=== PATIENT | female | born 1955 | race Caucasian/White ===

== ENCOUNTER 2016-10-02 22:15 | Observation (INO) | payer MEDICARE ==
[~2016-10-02] VITALS: Ht 167.6 cm; Wt 66.3 kg
[2016-10-02 23:15] VITALS: BP 102/68; PULSE 80; RESP 16; O2SAT 95
--- NOTE | 2016-10-02 23:15 | NUR ---
Admission Pt arrived on gurney with EMT's who transported the pt from [facility]. Pt was able to independently ambulate with steady gait to stand on scale for weight and then to the bed. Pt's VSS, pt is AOx3, on RA with SpO2 94-95%, afebrile, and multiple EKG stickers on skin. Had to remove the EKG stickers carefully since pt has very fragile skin. Pt takes prednisolone daily. Pt has a colostomy and emptied it herself without measuring. Pt also took hat out of toilet and urinated without measuring it. Pt has had no c/o chest pain, dizziness, or light headedness and is steady on her feet. Pt still has nitro paste on the back of the left shoulder.
[2016-10-02 23:32] VITALS: PULSE 85
[2016-10-02] MEDS ORDERED: Alum-Mag Hydrox-Simeth 30 mL Suspension PO PRN (23:55)
[2016-10-02] MEDS ORDERED: Ondansetron 2 mg/mL 2 mL Inj IVPUSH PRN (23:55)
[2016-10-02] MEDS ORDERED: Polyethylene Glycol (PEG) 17 Gm Powder PO PRN (23:55)
[2016-10-02] MEDS ORDERED: Senna-Docusate 8.6-50 mg Tablet PO PRN (23:55)
[2016-10-03] VITALS (7 sets, daily range): BP systolic 92–128; BP diastolic 61–83; PULSE 72–106; RESP 16–20; O2SAT 93–96
[2016-10-03] MEDS: Sodium Chloride LOK Flush 10 mL Syringe IVFLUSH SCH ×3 (00:30→16:30)
[2016-10-03] MEDS ORDERED: LORA10CA PO (00:35)
[2016-10-03] MEDS ORDERED: FLUT16SP NS (00:35)
[2016-10-03] MEDS ORDERED: LEVO88TA63 PO (00:35)
[2016-10-03] MEDS ORDERED: METH2.5T PO (00:35)
[2016-10-03] MEDS ORDERED: LOSA25TA21 PO (00:35)
[2016-10-03] MEDS ORDERED: ALBU0.63 INHALATION (00:35)
[2016-10-03] MEDS ORDERED: FAMC250T4 PO (00:35)
[2016-10-03] MEDS ORDERED: FRSM80T PO (00:35)
[2016-10-03] MEDS ORDERED: CARV12.52 PO (00:35)
[2016-10-03 01:18] LABS: BASOPHILS % (AUTO) 0.2 % (0-3); EOSINOPHILS % (AUTO) 0 % (0-5); MONOCYTES % (AUTO) 9.6 % (4-12); Mean Corpuscular Hemoglobin 29.8 pg (27.0-35.0); Mean Corpuscular Volume 90.3 fL (81-100); NEUTROPHILS % (AUTO) 77.2 % (40-74); Platelet Count 532 bil/L (150-400)
[2016-10-03 02:07] LABS: TROPONIN T 0.01 ug/L (0.0-0.011)
--- NOTE | 2016-10-03 02:16 | PCM.HPMED ---
Subjective Date of Service Oct 03, 2016 Primary Provider: Admitting Physician: Emerald Escoto DO Primary Care Physician: Juan Luis Delatorre MD Attending Physician: Emerald Escoto DO Admit Status: Direct Admit (from [facility]) Chief Complaint: Patient was experiencing chest discomfort, and felt a an electric jolt suddenly and possibly from her IAD History of Present Illness: Mitchell is a pleasant 60-year-old female with complex past medical history to include CHF status post placement of AICD/pacer in 01/20/2015 or 2016, hypertension, Graves' disease status post thyroid radiation, now with chronic hypothyroidism, COPD, who presented to this hospital via transfer from [facility] after having been brought in by EMS and after having experienced worsening chest tightness with exertion while shopping, associated shortness of breath, and dyspnea onset this morning about 10 AM. Patient states this morning that she had gained 2 pounds over the past 24 hours and took an additional one half of her normal water pill morning. Patient states that the chest tightness/pain continued to worsen throughout the business solutions architect and at about 1:00 pm patient states that she experienced an electric jolt sensation that she attributed to her AICD. Patient states that she has experienced her defibrillator going off in the past and this episode seemed consistent with her prior. She states that just before the defibrillator went off she felt like she was about to pass out and became weak and unsteady. She describes a sensation as though her heart was slowing, and her chest tightness was more severe. Patient endorses considerable amount of life stressors at the present time. She denies having actually passed out, or fallen, denies fever, chills, nausea, vomiting, diaphoresis, pain that radiates to the neck arm or back, rigors, abdominal pain, diarrhea, constipation. Patient's business planner is Charlie Rice who she reportedly last seen 3 months ago. Of note patient is currently being treated for bronchitis with Augmentin. [facility] vital signs temperature 36.4, pulse 85, respiratory rate 16, blood pressure 102/68, pulse ox 95% on room air. At [facility] patient's labs are as follows. UA: Trace bacteria 1+ otherwise normal UA Weight blood cell count 18.1, hemoglobin 12.8, hematocrit 38.9, platelet count 520, neutrophils 77%, INR, 0.9, D-dimer 0.54 high (range of 0.27-0.52), RISK TECH 82.6, amylase 128 high, TSH 0.262 L, Chemistry panel: Glucose 95, BUN 22, creatinine 1.2, sodium 140, potassium 3.2 L , chloride 100, CO2 27, calcium 9.4, troponin I negative at 0.05 (normal range is 0.00-1.5) Patient was given nitroglycerin 1.5 inch paste, normal saline 500 mL bolus, aspirin 325 mg by mouth, Ativan 0.5 mg IV, and started on Lovenox 60 mg subcutaneous. Review of Systems: A comprehensive review of systems was conducted and found to be negative except as mentioned in the history of present illness. Allergies Coded Allergies: Sulfa (Sulfonamide Antibiotics) (Verified Allergy, Unknown, 10/03/16) acyclovir (Verified Allergy, Unknown, 10/03/16) carbamazepine (Verified Allergy, Unknown, 10/03/16) cefaclor (Verified Allergy, Unknown, 10/03/16) glucosamine (Verified Allergy, Unknown, 10/03/16) metronidazole (Verified Allergy, Unknown, 10/03/16) morphine (Verified Allergy, Unknown, 10/03/16) naproxen (Verified Allergy, Unknown, 10/03/16) nitrofurantoin (Verified Allergy, Unknown, 10/03/16) Home Medications Albuterol sulfate inhalation 0.63 mg per 3 mL vial every 4 hours when necessary Carvedilol 12.5 mg twice a day Famciclovir 250 mg 3 times a day Fluconazole 5 mg daily 9 days Fluticasone propionate 16 g nasal 2 sprays each nostril twice a day Furosemide 80 mg per day Thyroxine sodium oral 88 g daily Losartan potassium oral 25 mg daily Methotrexate 2.5 mg daily Potassium chloride CR 10 mEq, 4 tablets twice a day Prednisolone 50 mg twice a day Proventil HFA inhalation 1-2 puffs 4 times a day as needed Spironolactone 25 mg daily Vitamin D oral 2000 unit capsule, 1 capsule daily Zofran 4 mg when necessary Patient currently on Augmentin, second round of seven-day course for bronchitis , patient states she has 2 days left of antibiotic. PMH CHF Hypertension Migraine headache Hypothyroidism Stress reaction C. difficile colitis NESSA History rectal bleed Ulcer colitis Osteopenia Breast cancer COPD Fibromyalgia History of falls fracture lumbar L2 on 04/08/2016 History Graves' disease status post thyroid radiation Surgical History Breast cancer lumpectomy left side Endometriosis Hemorrhage with childbirth sinus surgery Tonsillectomy Tubal ligation AICD/pacer 01/20/2015 or 2015 Colectomy/colostomy November 2015 with temporary ileostomy Family History With diabetes mellitus type II, Grandfather on mom's side with CHF, Aunt on mother's side with bone cancer, Sister with polymyositis, Grandfather on mom's side with history of [place] and cardiac arrest Aunt on mom's side with Graves' disease Grandmother on dad's side with rheumatoid arthritis Dad with emphysema Uncle with diabetes mellitus type I Social History Hx Alcohol Use: Yes Alcoholic Drinks Per Day: 1 glass wine/day Hx Substance Use: No Hx Tobacco Use: No Smoking Status: Never Smoker Living Arrangement: with Family ( boyfriend Jerson Islas) Exam Vital Signs Vital Sign - Last Date Time Temp Pulse Resp B/P Pulse Ox O2 Delivery O2 Flow Rate FiO2 10/02/16 23:32 85 10/02/16 23:15 36.4 16 102/68 95 Room Air Exam General: Alert and oriented 3, no acute distress, describing no current chest pain or tightness, somewhat labile mood when discussing her life stressors including the recent of her mother. HEENT: No cephalic, atraumatic, extraocular muscles intact, exophthalmus right greater than left status post history of Graves' disease, neck supple, mildly tender in the posterior cervical spine with palpation, no masses, no adenopathy , no JVD, throat noninjected, no erythema Lungs: Clear to auscultation all kidd no wheezes no rhonchi no crackles Heart: Regular rate and rhythm without murmur, without rub, without click Abdomen: Ileostomy right lower quadrant, bowel sounds active, abdomen soft, nontender, nondistended, no organomegaly detected Genitourinary: No suprapubic tenderness Extremities: No lower extremity edema, pulses equal bilaterally upper/lower extremity Neurologic: Appears grossly neurologically intact speaking in full sentences, without focal neurological signs Skin: Skin appears extremely dry to touch and fragile. Psychiatric: Mood is labile at times during the interview, specifically when discussing her life stressors. Assessment & Plan Mitchell is a pleasant 60-year-old female with complex past medical history to include CHF status post placement of AICD/pacer in 01/20/2015 or 2016, hypertension, Graves' disease status post thyroid radiation, now with chronic hypothyroidism, COPD, who presented following an episode of worsening chest tightness with exertion while shopping, associated shortness of breath, and dyspnea and then experienced an electric jolt sensation that she attributed to her AICD. He was admitted for further workup and interrogation of her AICD/ pacemaker. # Acute onset chest pain, present on admission, active - Patient currently not in any chest pain. Patient was given Vicodin 10 mg tablet at [facility]. At 8:10 PM on 10/02/2016 - She was transferred from [facility] poorly after having experienced possible discharge of her AICD. Patient received topical nitroglycerin paste 1.5 inches applied to the right upper back. - Workup at [place] was negative as follows: Troponin I negative at 0.05 ( normal range is 0.00-1.5), - Was given Lovenox 60 mg subcutaneous once. - D-dimer slightly elevated at 0.54 normal range (range of 0.27-0.52) - EKG from [facility] showed paced rhythm nonspecific ST segment and T-wave abnormalities. - CXR [facility] reportedly showed no acute changes - Patients lase echo is unknown. Will order echo complete. - As yet not seen by business planner. - Cardiology consult in the morning. Patient will need pacer interrogation. - We will repeat troponin I X 2 - O2 Sats keep > 94% - IV fluids if needed for BP control. Note patient has CHF and currently on Furosemide 80 mg PO daily - Continue home medication carvedilol 12.5 mg twice a day - Continue home Losartan - Start Atorvastatin 40 mg - allergy to Morphine. hydromorphone for pain control - Nitro SL, Nitro [place], Nitro Paste (PRN) - Aspirin 325mg - Lovenox subcutaneous dose 60 mg, patient given single dose at [place]), will not continue at this time given neg trop - Continuous Cardiac Monitoring/BP monitoring - Labs (Lipid Panel, CBC, CMP, PT/PTT/INR) # Leukocytosis, chronicity unknown, present on admission - WBCs 18.1, neutrophils 77% - Patient currently on her second round of 7 days course of Augmentin, for stated bronchitis. - Pro calcitonin - Continue outpatient Augmentin 2 more days # Hypokalemia, present on admission, active - Current potassium is 3.[address] [facility] labs. repeat wnl - After review of nursing progress Notes it does not appear patient had potassium repleted at [facility] - We will plan to reorder chemistry labs and replete potassium as needed Chronic problems CHF Hypertension Migraine headache Hypothyroidism, history Graves' disease status post thyroid radiation Ulcer colitis Osteopenia COPD Fibromyalgia History of falls fracture lumbar L2 on 04/08/2016 Disposition: Admitted to in patient service with expected length of stay greater than 2 days, secondary to severity of presenting symptoms, treatment plan, complexity of clinical work up, and risk of adverse events. CODE STATUS: DNR/DNI Government Relations Manager: Charlie Rice at [facility] PCP: Juan Luis Delatorre DVT/PE prophylaxis: Patient received 60 mg of subcutaneous Lovenox at [facility] part prior to transfer at 19:53 on 10/02/2016 per RN nursing notes. SCDs as of now. VTE Mechanical Devices: Intermittant Pneumatic CD Resuscitation Status: DNR/DNI:Do Not Resuscitate/Intubate Attending Statement The patient was seen and examined together with house staff on 10/02/2016 and I have added additional information to the note above. Gualberto Pride DO Oct 03, 2016 02:16 Emerald Escoto DO Oct 03, 2016 04:28 , chloride 100, CO2 27, calcium 9.4, troponin I negative at 0.05 (normal range is 0.00-1.5) Patient was given nitroglycerin 1.5 inch paste, normal saline 500 mL bolus, aspirin 325 mg by mouth, Ativan 0.5 mg IV, and started on Lovenox 60 mg subcutaneous. VTE Mechanical Devices: Intermittant Pneumatic CD Resuscitation Status: DNR/DNI:Do Not Resuscitate/Intubate Gualberto Pride DO Oct 03, 2016 02:16 Emerald Escoto DO Oct 03, 2016 04:28 Gualberto Pride DO Oct 03, 2016 02:16 Emerald Escoto DO Oct 03, 2016 04:28
[2016-10-03] MEDS ORDERED: Ondansetron 2 mg/mL 2 mL Inj IVPUSH PRN (02:20)
[2016-10-03] MEDS ORDERED: Alum-Mag Hydrox-Simeth 30 mL Suspension PO PRN (02:20)
[2016-10-03] MEDS ORDERED: Senna-Docusate 8.6-50 mg Tablet PO PRN (02:20)
[2016-10-03] MEDS ORDERED: Polyethylene Glycol (PEG) 17 Gm Powder PO PRN (02:20)
[2016-10-03] MEDS ORDERED: ONDA4TAB6 PO (04:50)
[2016-10-03] MEDS ORDERED: MESA1.2T2 PO (04:50)
[2016-10-03] MEDS ORDERED: CHOL100043 PO (04:50)
[2016-10-03] MEDS ORDERED: SPIR25TA3 PO (04:50)
[2016-10-03] MEDS ORDERED: NITR0.4T6 SL (04:50)
[2016-10-03] MEDS ORDERED: PRED5TAB55 PO (04:50)
[2016-10-03] MEDS ORDERED: POTA10CA42 PO (04:50)
[2016-10-03] MEDS ORDERED: predniSONE 5 mg Tablet PO SCH (08:00)
[2016-10-03] MEDS ORDERED: Albuterol 1.25 mg/3 mL Inhalation Solution INHALATION PRN (08:00)
[2016-10-03] MEDS ORDERED: Fluticasone 0.05% 15 Spray/2 Gm 16 Gm Nasal Spray NASAL SCH (08:30)
[2016-10-03] MEDS ORDERED: Sodium Chloride LOK Flush 10 mL Syringe IVFLUSH SCH (08:30)
[2016-10-03 08:48] LABS: TROPONIN T < 0.010 ug/L (0.0-0.011)
[2016-10-03] MEDS: Acyclovir 800 mg Tablet PO SCH ×2 (09:21→13:58)
[2016-10-03] MEDS: HYDROcodone-APAP 10-325 mg PO PRN ×3 (09:22→21:42)
--- NOTE | 2016-10-03 10:35 | DRSVH ---
PROCEDURE: X-RAY CHEST ONE VIEW, PORTABLE ([id number]) INDICATIONS: Chest pain TECHNIQUE: One view of the chest was acquired. COMPARISON: None. FINDINGS: Surgical changes and devices: Right chest AICD present. Lungs and pleura: No pleural effusions or pneumothorax. Lungs are clear. Mediastinum: Mediastinal contours appear normal. Heart size is normal. Bones and chest wall: No suspicious bony lesions. Overlying soft tissues appear unremarkable. IMPRESSION: No acute cardiopulmonary disease. Dictated by: Manuel AMES Interpreted: Junaid Sage MD on 10/03/2016 at 10:34 Transcribed by: HARDIK on 10/03/2016 at 10:34 Approved by: Da Sage M.D. on 10/03/2016 at 16:22
[2016-10-03] MEDS ORDERED: Fluticasone 0.05% 15 Spray/2 Gm 16 Gm Nasal Spray NASAL PRN (11:58)
[2016-10-03] MEDS ORDERED: Potassium Chloride 20 mEq/15 mL 15mL Oral Soln PO SCH (12:05)
[2016-10-03] MEDS ORDERED: predniSONE 1 mg Tablet PO ONE (13:00)
[2016-10-03] MEDS: Mesalamine 500 mg CR Capsule PO SCH ×2 (13:57→20:30)
--- NOTE | 2016-10-03 15:45 | NUR ---
Med Rec After working with the MD and Pharmacist we adjusted and corrected the pt's med rec. The pt stated she had an old list but is very knowledgeable of when and dose of her medications. We adjusted and corrected them on the [place] and I adjusted the Med Rec so its ready to go upon discharge.
--- NOTE | 2016-10-03 16:36 | NUR ---
Social Work Note: Initial Assessment/Discharge Data& Assessment: Per pt is medically ready for discharge. MARGUERITE met with pt at bedside to discuss discharge planning and assess for any unmet needs, SW role explained. Mitchell Mares is a 60 year old female admitted on 10/02/2016 for unstable angina. Per pt is medically improved and ready for discharge. Pt has [employer] Medicare insurance coverage and her PCP is Juan Luis Delatorre MD. Pt lives in [place] with her significant other and is independent at baseline with all ADL;s. Pt has DME at home if needed but does not use/require them for ambulation assistance. Pt has had HH services in the past but does not remember the name. Pt has been to [facility] and rehab in the past as well for SNF stay. Pt does not have LTC insurance and is not a . Pt declined DPOA paperwork at this time and explained she was feeling two overwhelmed with the of her mother to think about DPOA. Pt explained she needed a ride home to [place]. SW explained transportation is not covered under her insurance and would need to private pay for a taxi. Pt explained she was not willing to spend the money on a taxi to get home so she would either wait here or she would "figure something else out." Pt became very agitated and denied any other needs from MARGUERITE. MARGUERITE notified RN. No other discharge needs identified. Plan: Per pt is medically improved and ready to discharge home via POV. Pt denied any other needs from MARGUERITE. MARGUERITE notified RN. No other discharge needs identified. CHRISTIANE Perez Addendum: 10/03/16 at 1642 by CAITLIN ECHAVARRIA Amended: Links added.
--- NOTE | 2016-10-03 17:30 | NUR ---
spiritual care: pt request pt tearful as she reflected on recent of her mother and overwhelm of grief and tasks. Pt articulate about her situation including sense of vulnerability and alliances as she faces future. Pt identified sources of strength as she recollected emotions, events and experiences around providing longtime care for her mother. blessing
--- NOTE | 2016-10-03 18:02 | NUR ---
Case Management: Explained JONES to patient at 1735, all questions answered. Signed original in chart, patient given a copy. Cornelia Fernandez RN
--- NOTE | 2016-10-03 18:09 | CONS ---
[address] [address] CONSULTATION REPORT PATIENT: ENRIKE TORRES : 1955 MR#: [id number] ADMIT: 10/02/2016 JOB ID: [id number] DATE OF SERVICE: 10/03/2016 HISTORY: I was asked by the hospitalist to see this patient for evaluation of possible ICD shock. This patient's cardiac history dates back several years ago when she was found to have evidence of a significant left ventricular systolic dysfunction. Her evaluation at that time at [facility] in [place] did not demonstrate any evidence of underlying ischemic or valvular heart disease, and the patient states that she felt it was related to Humira that she had been taking for her history of ulcerative colitis and rheumatoid arthritis in the past. Ultimately, she ended up on a number of appropriate cardiac medications and a biventricular ICD device was placed a couple of years ago. This was a [employer] device. This patient states that she has had several episodes over the past couple of years of a sense of lightheadedness. She describes a sense that her heart is slowing and that she becomes lightheaded and then feels an electric sensation substernally and is then immediately back to normal. On each occasion that this has happened, she has had her device interrogated and no significant dysrhythmias or shocks have been identified. Similar episode occurred on the morning of admission yesterday. She had recovered from a bronchitis episode where she was pretty much in bed for the last five days. She was up and about doing some errands and chores holding onto a grocery cart when she had a similar episode and when she got home she contacted the [facility] nurse on the phone who encouraged her to contact 911 which she did, and she was brought therefore to this hospital for further evaluation after she presented to [facility]. Her evaluation to date has been unremarkable. Her device shows atrial synchronous biventricular pacing. She has no history of angina-like chest discomfort though she does have a history of fibromyalgia and experiences a variety of unusual precordial chest pains on occasion. She also states that every time her device is checked as they are adjusting the device to test its function, she will have symptoms of significant discomfort. CURRENT CARDIAC MEDICATIONS AT HOME: Include: 1. Carvedilol 12.5 mg b.i.d. 2. Furosemide. She takes two pills in the morning and one pill in the evening. She also has metolazone that she takes a half a tablet once or twice a week as needed for symptomatic fluid congestion. 3. She takes losartan 25 mg a day. 4. Spironolactone 25 mg a day. 5. Oral liquid potassium since she does not absorb the pill potassium because of her previous bowel problems. 6. Additionally she is on thyroid medication. 7. For her rheumatoid arthritis and history of ulcerative colitis she is on methotrexate in addition to prednisone in variable doses. PAST MEDICAL HISTORY: Otherwise includes rheumatoid arthritis and ulcerative colitis. She has had previous lumpectomy and radiation therapy for breast cancer in the left breast about four/five years ago and a history of fibromyalgia. SOCIAL HISTORY: Otherwise noncontributory. Her ambulation is somewhat limited by some back discomfort, but she is able to be reasonably active. PHYSICAL EXAMINATION: She is a very pleasant, 60-year-old female who does not appear in any distress. She is 5 feet 6 inches tall and weighs 146 pounds with a body mass index of 23.5. Cardiovascular examination is unremarkable. She has a right-sided ICD in place. She has no significant evidence of pulmonary congestion or lower extremity edema and jugular venous pressure looks normal as well. LABORATORY DATA: Notable for moderately elevated white count of 17,000 likely related to her steroids. Her platelet count was also high at 532,000. Chemistries show slightly low potassium at 3.5 and a fairly high cholesterol of 236 with an LDL cholesterol of 163. TSH level is moderately low at 0.255. Serial troponin levels are negative. Chest x-ray demonstrates a biventricular ICD in place. Earlier this afternoon, the [employer] telemarketing representative was able to interrogate the device. Interestingly, this precipitated the usual discomfort that she gets when she goes into her sports media's office for device testing. The device demonstrates no evidence of dysrhythmias. She is biventricular pacing greater than 99% of the time and has been in a normal sinus rhythm consistently. IMPRESSION: I suspect that this patient's lightheaded episodes may represent a vasodepressor event but, clearly, is not a cardiac-related symptom. I think she can continue with her current cardiac medications and follow up with Dr. Ott, her primary sports media in [place]. I think it is reasonable for her to be discharged home and reassured. I have suggested that if she has recurrent similar episodes that she promptly sit down to avoid the possibility of syncope.
[2016-10-03 18:22] LABS: Mean Corpuscular Hemoglobin 29.9 pg (27.0-35.0); Mean Corpuscular Volume 90.3 fL (81-100); NEUTROPHILS % (AUTO) 79.8 % (40-74)
[2016-10-03 18:26] LABS: BASOPHILS % (AUTO) 0.2 % (0-3); EOSINOPHILS % (AUTO) 0.2 % (0-5); MONOCYTES % (AUTO) 9.9 % (4-12); Platelet Count 534 bil/L (150-400)
--- NOTE | 2016-10-03 20:02 | PCM.DIMED ---
Discharge Instructions Date of Service Oct 03, 2016 Dates of Hospitalization Oct 02, 2016 at 23:12 Discharge Diagnosis Discharge Diagnosis Vasovagal reaction with atypical chest discomfort Diet Heart Healthy Activity No restrictions (a resume usual activities gradually as tolerated) Call your provider Fever or Chills, Shortness of breath, Bleeding, Chest pain, Vomitting, Excessive diarrhea, Weakness (unilateral), Other Patient Instructions Follow-up Provider: Alonzo Castle MD Follow-up with PCP in: 1 week Follow-up in: 2 weeks (follow-up with director of speech pathology Dr. Charlie Rice) Juan Pablo Reynoso MD Oct 03, 2016 20:02
[2016-10-03] MEDS ORDERED: NITR0.4T SL (20:07)
[2016-10-03] MEDS ORDERED: AMOX500T2 PO (20:07)
[2016-10-03] MEDS ORDERED: ATOR40TA69 PO (20:07)
[2016-10-03] MEDS ORDERED: FOLI1TAB18 PO (20:07)
[2016-10-03] MEDS ORDERED: ASPI81TA3 PO (20:07)
--- NOTE | 2016-10-03 21:26 | PCM.DC.MED ---
Discharge Summary Date of Service Oct 03, 2016 Dates of Hospitalization Date of Hospital Admission Oct 02, 2016 at 23:12 Date of Discharge: Oct 03, 2016 Providers: Admitting Physician: Emerald Escoto DO Primary Care Physician: Juan Luis Delatorre MD Attending Physician: Emerald Escoto DO Diagnosis at Time of Discharge Diagnosis at Time of Discharge Vasovagal reaction with atypical chest discomfort Consultations Dr. Joe Rodriguez of cardiology Procedures XRay, CTs & MRIs PROCEDURE: X-RAY CHEST ONE VIEW, PORTABLE ([id number]) INDICATIONS: Chest pain TECHNIQUE: One view of the chest was acquired. COMPARISON: None. FINDINGS: Surgical changes and devices: Right chest AICD present. Lungs and pleura: No pleural effusions or pneumothorax. Lungs are clear. Mediastinum: Mediastinal contours appear normal. Heart size is normal. Bones and chest wall: No suspicious bony lesions. Overlying soft tissues appear unremarkable. IMPRESSION: No acute cardiopulmonary disease. Dictated by: Manuel Celaya RRNba Interpreted: Junaid Sage MD on 10/03/2016 at 10: 34 Transcribed by: HARDIK on 10/03/2016 at 10:34 Approved by: Da Sage M.D. on 10/03/2016 at 16:22 Brief History Mitchell is a pleasant 60-year-old female with complex past medical history to include CHF status post placement of AICD/pacer in 01/20/2015 or 2016, hypertension, Graves' disease status post thyroid radiation, now with chronic hypothyroidism, COPD, who presented to this hospital via transfer from [facility] after having been brought in by EMS and after having experienced worsening chest tightness with exertion while shopping, associated shortness of breath, and dyspnea onset this morning about 10 AM. Patient states this morning that she had gained 2 pounds over the past 24 hours and took an additional one half of her normal water pill morning. Patient states that the chest tightness/pain continued to worsen throughout the service trainer and at about 1:00 pm patient states that she experienced an electric jolt sensation that she attributed to her AICD. Patient states that she has experienced her defibrillator going off in the past and this episode seemed consistent with her prior. She states that just before the defibrillator went off she felt like she was about to pass out and became weak and unsteady. She describes a sensation as though her heart was slowing, and her chest tightness was more severe. Patient endorses considerable amount of life stressors at the present time. She denies having actually passed out, or fallen, denies fever, chills, nausea, vomiting, diaphoresis, pain that radiates to the neck arm or back, rigors, abdominal pain, diarrhea, constipation. 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 Of note patient is currently being treated for bronchitis with Augmentin. [facility] vital signs temperature 36.4, pulse 85, respiratory rate 16, blood pressure 102/68, pulse ox 95% on room air. At [facility] patient's labs are as follows. UA: Trace bacteria 1+ otherwise normal UA Weight blood cell count 18.1, hemoglobin 12.8, hematocrit 38.9, platelet count 520, neutrophils 77%, INR, 0.9, D-dimer 0.54 high (range of 0.27-0.52), DECONTAMINATION TECHNICIAN 82.6, amylase 128 high, TSH 0.262 L, Chemistry panel: Glucose 95, BUN 22, creatinine 1.2, sodium 140, potassium 3.2 L , chloride 100, CO2 27, calcium 9.4, troponin I negative at 0.05 (normal range is 0.00-1.5) Patient was given nitroglycerin 1.5 inch paste, normal saline 500 mL bolus, aspirin 325 mg by mouth, Ativan 0.5 mg IV, and started on Lovenox 60 mg subcutaneous. Patient was transferred to [facility] for further cardiac workup. Hospital Course Mitchell is a pleasant 60-year-old female with complex past medical history to include CHF status post placement of AICD/pacer in 01/20/2015 or 2016, hypertension, Graves' disease status post thyroid radiation, now with chronic hypothyroidism, COPD, who presented following an episode of worsening chest tightness with exertion while shopping, associated shortness of breath, and dyspnea and then experienced an electric jolt sensation that she attributed to her AICD. He was admitted for further workup and interrogation of her AICD/ pacemaker. # Acute onset chest pain, present on admission, active - Patient currently not in any chest pain. Patient was given Vicodin 10 mg tablet at [facility]. At 8:10 PM on 10/02/2016 - She was transferred from [facility] poorly after having experienced possible discharge of her AICD. Patient received topical nitroglycerin paste 1.5 inches applied to the right upper back. - Workup at [place] was negative as follows: Troponin I negative at 0.05 ( normal range is 0.00-1.5), - Was given Lovenox 60 mg subcutaneous once. - D-dimer slightly elevated at 0.54 normal range (range of 0.27-0.52) - EKG from [facility] showed paced rhythm nonspecific ST segment and T-wave abnormalities. - CXR [facility] reportedly showed no acute changes - Patients lase echo is unknown. We ordered an echocardiogram, however this had not been completed at the time of discharge. - Cardiology consult was obtained with Dr. Joe Rodriguez seeing the patient. Appreciate his time and expertise. A Pacer interrogation was performed by the [employer] branch customer service representative who found nothing wrong with her AICD/pacemaker. Furthermore, the [employer] branch customer service representative found no unusual events within the last few days. - Patient has had a negative troponin I X 3 - O2 Sats keep > 94% - IV fluids if needed for BP control. Note patient has CHF and currently on Furosemide 80 mg PO daily - Continue home medication carvedilol 12.5 mg twice a day - Continue home Losartan - Start Atorvastatin 40 mg - allergy to Morphine. hydromorphone for pain control - Nitro SL, Nitro [place], Nitro Paste (PRN) - Aspirin 325mg - Lovenox subcutaneous dose 60 mg, patient given single dose at [place]), will not continue at this time given neg trop - Continuous Cardiac Monitoring/BP monitoring - Labs (Lipid Panel, CBC, CMP, PT/PTT/INR) # Leukocytosis, chronicity unknown, present on admission - WBCs 18.1, neutrophils 77%. Repeat white blood cell count 17.0 and then repeat later today is 13.8. Suspect patient experienced some demyelination of white blood cells and white blood cell count is normalizing her home amoxicillin therapy - Patient currently on her second round of 7 days course of Amoxicillin, for stated bronchitis. - Pro calcitonin - Continue outpatient Amoxicillin 2 more days # Hypokalemia, present on admission, active - Current potassium is 3.2 per [facility] labs. repeat wnl - After review of nursing progress Notes it does not appear patient had potassium repleted at [facility] - We will plan to reorder chemistry labs and replete potassium as needed Chronic problems CHF Hypertension Migraine headache Hypothyroidism, history Graves' disease status post thyroid radiation Ulcer colitis Osteopenia COPD Fibromyalgia History of falls fracture lumbar L2 on 04/08/2016 Disposition: Patient was evaluated by Dr. Joe Rodriguez of cardiology. He feels that the may be discharged home to continue her usual course of home medications. Patient to follow-up with her boring mill set up operator Dr. Charlie Rice at [facility]. The patient agrees with this plan and will be discharged home. CODE STATUS: DNR/DNI Blindstitch Lapel Padder: Charlie Rice at [facility] PCP: Juan Luis Delatorre DVT/PE prophylaxis: Patient received 60 mg of subcutaneous Lovenox at [facility] part prior to transfer at 19:53 on 10/02/2016 per RN nursing notes. SCDs as of now. Exam Vital Signs (Last) Date Time Temp Pulse Resp B/P Pulse Ox O2 Delivery O2 Flow Rate FiO2 10/03/16 20:17 36.9 105 18 110/70 93 Room Air Exam General: Patient is in no apparent distress. HEENT: Head is atraumatic and normocephalic. Eyes: Pupils are equally round and reactive to light and accommodation. Extraocular muscles are intact. Sclera are white, anicteric. Subconjunctival mucosa is pink. Ears and nose are unremarkable. Oropharynx: There is no mucosal lesions, there is no thrush, there is no pharyngitis. Neck: Is supple, there are no nodes, or masses or tenderness. Chest: Is clear to auscultation and percussion. There are no rales, rhonchi, wheezes or rubs. Heart: Rate, rhythm is regular. There is no murmur, rub or gallop. Abdomen: Good bowel sounds are present. Abdomen is soft, nontender, no organomegaly or masses were appreciated. Extremities: Are symmetrical and well perfused. There is no edema, there is no cellulitis, no rash. Neurologic: There are no focal neurological deficits. Cranial nerves II through XII are intact. There are no sensory or motor deficits. Psychiatric: Patients mood is calm and shows no sign of agitation. Genital: Deferred Rectal: Deferred Test 10/03/16 01:08 10/03/16 07:25 10/03/16 17:55 Sodium Level 137mEq/L (134-144) Potassium Level 3.5mEq/L (3.5-5.2) Chloride Level 94mEq/L (97-108) Carbon Dioxide Level 24mmol/L (18-29) Blood Urea Nitrogen 20mg/dL (8-27) Creatinine 0.99mg/dL (0.57-1.00) Estimat Glomerular Filtration Rate 81mL/min (>59) Glucose Level 102mg/dL (60-99) Calcium Level 9.1mg/dL (8.5-10.1) Triglycerides Level 136mg/dL (0-149) Cholesterol Level 236mg/dL (100-199) LDL Cholesterol, Calculated 163.800mg/dL (0-99) VLDL Cholesterol 27.200mg/dL HDL Cholesterol 45mg/dL (>39) Cholesterol/HDL Ratio 5.24 (0.0-4.4) Thyroid Stimulating Hormone (TSH) 0.255uIU/mL (0.450-4.500) Magnesium Level 2.0mg/dL (1.6-2.6) Procalcitonin 0.08ng/mL (0.00-0.08) White Blood Count 13.8th/mm3 (3.8-10.1) Red Blood Count 4.01mil/mm3 (3.90-5.20) Hemoglobin 12.0g/dL (12.0-15.6) Hematocrit 36.2% (35.0-46.0) Mean Corpuscular Volume 90.3fL (81-100) Mean Corpuscular Hemoglobin 29.9pg (27.0-35.0) Mean Corpuscular Hemoglobin Concent 33.1% (32.0-37.0) Red Cell Distribution Width 22.1% (12.3-15.4) Platelet Count 534bil/L (150-400) Neutrophils (%) (Auto) 79.8% (40-74) Lymphocytes (%) (Auto) 9.4% (14-46) Monocytes (%) (Auto) 9.9% (4-12) Eosinophils (%) (Auto) 0.2% (0-5) Basophils (%) (Auto) 0.2% (0-3) Troponin T < 0.010ug/L (0.0-0.011) Discharge Medications Discharge Medications Amoxicillin (Amoxicillin) 500 Mg Tablet 500 MG PO TID Prescribed by: ALBERTO REYNOSO MD Aspirin Chew (Aspirin Chew) 81 Mg Chew 81 MG PO DAILY Prescribed by: ALBERTO REYNOSO MD Atorvastatin Calcium (Atorvastatin Calcium) 40 Mg Tablet 40 MG PO HS Prescribed by: ALBERTO REYNOSO MD Carvedilol (Carvedilol) 12.5 Mg Tablet 12.5 MG PO BID (Reported) Cholecalciferol (Vitamin D3) (Vitamin D) 1,000 Unit Tablet 2,000 UNIT PO DAILY ( Reported) Famciclovir (Famciclovir) 250 Mg Tablet 250 MG PO TID (Reported) Folic Acid (Folic Acid) 1 Mg Tablet 0.5 MG PO DAILY Prescribed by: ALBERTO REYNOSO MD Furosemide (Furosemide) 80 Mg Tab 80 MG PO DAILY (Reported) Losartan Potassium (Losartan Potassium) 25 Mg Tablet 25 MG PO HS (Reported) Potassium Chloride (Potassium Chloride) 10 Meq Capsule.er 30 MEQ PO DAILY ( Reported) TAKE WITH FOOD Spironolactone (Spironolactone) 25 Mg Tablet 25 MG PO DAILY (Reported) As needed Albuterol Neb Soln (Albuterol Neb Soln) 0.63 Mg/3 Ml Vial.neb 0.63 MG INHALATION Q4H PRN PRN For Shortness of Breath (Reported) Fluticasone Propionate (Fluticasone Propionate Nasal) 16 Gm [place].susp 2 SPRAY NS BID PRN PRN For Congestion (Reported) Loratadine (Claritin) 10 Mg Capsule 10 MG PO DAILY PRN PRN For Congestion ( Reported) Nitroglycerin SL (Nitrostat) 0.4 Mg Tab.subl 0.4 MG SL Q5MIN PRN PRN For Chest Pain Prescribed by: ALBERTO REYNOSO MD Ondansetron (Zofran) 4 Mg Tablet 4 MG PO Q4H PRN PRN For Nausea (Reported) Miscellaneous Medications Levothyroxine Sodium (Levo-T) 88 Mcg Tablet 88 MCG PO (Reported) Methotrexate Sodium (Methotrexate) 2.5 Mg Tablet 20 MG PO (Reported) Nitroglycerin SL (Nitroglycerin SL) 0.4 Mg Tab.subl 0.4 MG SL (Reported) Prednisolone (Millipred) 5 Mg Tablet 5 MG PO (Reported) Followup Plan Disposition: Patient is being discharged home. Her boyfriend is going to pick her up after work this evening and they are going to celebrate the remainder of bowel pain stayed together. Discharge Diet: Heart Healthy Discharge Activity: No restrictions (a resume usual activities gradually as tolerated) Follow-up Provider: Alonzo Castle MD Follow-up with PCP in: 1 week Follow-up in: 2 weeks (follow-up with boring mill set up operator Dr. Charlie Rice) Time spent Time spent on discharging this patient was greater than 35 minutes, over half of which was involved in counseling and coordination of care. Juan Pablo Reynoso MD Oct 03, 2016 21:25
--- NOTE | 2016-10-03 23:15 | NUR ---
Discharge Pt was taken downstairs in a wheelchair approximately 2230 with all personal belongings and DC packet. Pt's VSS and pt did not c/o chest pain.
== END 2016-10-03 22:30 | disposition home or self-care (01) ==
LOC: PCC 23:12 → INTOOBSV 23:12
PROVIDERS: ADMIT Internal Medicine; ATTEND Internal Medicine
DX: R07.89 Other chest pain (principal); R55 Syncope and collapse; I50.9 Heart failure, unspecified; E87.6 Hypokalemia; D72.829 Elevated white blood cell count, unspecified; E89.0 Postprocedural hypothyroidism; Z95.810 Presence of automatic (implantable) cardiac defibrillator; J44.9 Chronic obstructive pulmonary disease, unspecified; I10 Essential (primary) hypertension; Z85.3 Personal history of malignant neoplasm of breast; M06.9 Rheumatoid arthritis, unspecified; M79.7 Fibromyalgia; Z79.52 Long term (current) use of systemic steroids; Z66 Do not resuscitate; Z92.3 Personal history of irradiation
CPT/HCPCS: 36415; 71010; 80048; 80061; 82308; 83036; 83735; 84443; 84484; 85025; 93005; G0378; G0379; J7512